=== PATIENT | female | born 1975 | race Caucasian/White ===

== ENCOUNTER 2020-10-01 09:43 | Outpatient (CLI) | payer BC ==
--- NOTE | 2020-10-01 10:44 | MRI ---
Exam: MRI cervical spine without contrast HISTORY: Neck pain. Bilateral shoulder and arm pain times couple years. COMPARISON: None FINDINGS: Straightening of cervical lordosis. Appropriate T1 marrow signal intensity of the cervical vertebra. Cervical spine vertebral body height is maintained. No fracture. No significant STIR hyperintensity to suggest ligamentous injury or vertebral body edema. Visualized brain parenchyma, cervicomedullary junction, cervical cord and the upper thoracic cord hav e a normal size and signal intensity C2-C3: Adequate disc hydration. No significant central canal stenosis. Patent bilateral neural forami na. C3-C4: Adequate disc hydration. Broad-based disc bulge minimally flattens the thecal sac. No signific ant central canal stenosis. Moderate right neural foraminal narrowing. Left neural foramen is patent. C4-C5: Adequate disc hydration. No significant loss of disc space height. No significant posterior di sc abnormality. No significant central canal stenosis. Mild right foraminal narrowing due to uncovertebral hypertrophy. Patent left neural foramen. C5-C6: 6 adequate disc hydration without significant loss of disc space height. There is a central/ri ght paracentral disc herniation with superior disc migration. There is mass effect upon the right hemicord without cord signal abnormality. Mild to moderate narrowing of the right paracentral aspect of the central spinal canal. Moderate right neural foraminal narrowing due to uncovertebral hypertrophy. Mild left neural foraminal narrowing due to uncovertebral hypertrophy. C6-C7: Adequate disc hydration. Central disc herniation abuts the thecal sac. Subarachnoid space is m aintained. Mild central canal stenosis. Mild bilateral neural foraminal narrowing due to uncovertebral hypertrophy. C7-T1: Left paracentral disc herniation. Near complete effacement of the left paracentral subarachnoi d space. Mild central canal stenosis. Patent bilateral neural foramina. IMPRESSION: Multilevel degenerative changes of the cervical spine as detailed above. Transcribed Date/Time: 10/01/2020 11:17 AM
== END 2020-10-01 09:44 | disposition home or self-care (01) ==
LOC: BICMRI 09:43
PROVIDERS: ATTEND Psychiatry & Neurology Neurology
DX: G56.03 Carpal tunnel syndrome, bilateral upper limbs (principal); G56.21 Lesion of ulnar nerve, right upper limb; M54.2 Cervicalgia; M47.812 Spondylosis without myelopathy or radiculopathy, cervical region
CPT/HCPCS: 72141